=== PATIENT | male | born 1995 | race Caucasian/White ===

== ENCOUNTER 2021-02-14 13:07 | Emergency (ER) | payer SELFPAY ==
[~2021-02-14] VITALS: Ht 177.8 cm; Wt 72.1 kg
[2021-02-14] MEDS ORDERED: LORAZEPAM INJ 2 MG/ML VIAL IM STA (13:09)
[2021-02-14] MEDS ORDERED: diphenhydrAMINE HCL 50 MG/ML VIAL ONE (13:13)
[2021-02-14] MEDS ORDERED: HALOPERIDOL LACTATE INJ 5 MG/ML VIAL ONE (13:14)
[2021-02-14] MEDS ORDERED: LORAZEPAM INJ 2 MG/ML VIAL ONE (13:14)
--- NOTE | 2021-02-14 13:14 | NUR ---
PT PLACED ON BEHAVIORAL RESTRAINTS.
--- NOTE | 2021-02-14 13:18 | NUR ---
[facility] AND [employer] ON [facility]FFS TO ER BED 15. AWAKE, ALERT BUT AGITATED. NOT IN RESP DISTRESS. BROUGHT IN BECAUSE A BYSTANDER CALLED 911 BECAUSE PT IS YELLING ANG SCREAMING INFRONT OF A [employer]S GROCERY. PT INDEED AGITATED, YELLING AND SCREAMING UPON PRESENTATION. DENIES ANY SUICIDAL NOR HOMICIDAL THOUGHT. WAS AT THE BEDSIDE FOR EVAL. ORDERS RECEIVED, NOTED AND CARRIED OUT.
[2021-02-14 13:29] LABS: BASOPHILS # (AUTO) 0.1 K/uL (0.0-0.2); BASOPHILS % (AUTO) 0.5 % (0.0-2.0); EOSINOPHILS % (AUTO) 0.1 % (0.0-6.0); HEMATOCRIT 40 % (39-51); LYMPHOCYTES # (AUTO) 2.8 K/uL (0.8-4.8); LYMPHOCYTES % (AUTO) 20.3 % (20.0-44.0); MEAN CORPUSCULAR HGB CONC 33 g/dl (31.0-36.0); MEAN CORPUSCULAR VOLUME 92 fL (80-96); MONOCYTES # (AUTO) 1.4 K/uL (0.1-1.30); MONOCYTES % (AUTO) 10.5 % (2.0-12.0); NEUTROPHILS # (AUTO) 9.3 K/uL (1.8-8.9); NEUTROPHILS % (AUTO) 68.6 % (43.0-81.0); PLATELET COUNT (AUTO) 399 K/uL (150-450); RED BLOOD CELL COUNT(AUTO) 4.35 MIL/uL (4.5-6.0); WHITE BLOOD COUNT (AUTO) 13.6 K/uL (4.3-11.0)
[2021-02-14] MEDS ORDERED: HALOPERIDOL LACTATE INJ 5 MG/ML VIAL IM ONE (13:30)
[2021-02-14] MEDS ORDERED: diphenhydrAMINE HCL 50 MG/ML VIAL IM ONE (13:30)
[2021-02-14 13:37] LABS: CALCIUM, SERUM 9.4 mg/dL (8.5-10.1); CARBON DIOXIDE 21 mmol/L (21-32); CHLORIDE 105 mmol/L (98-107); CREATININE 1.2 mg/dL (0.6-1.3); GLUCOSE 95 mg/dL (74-106); POTASSIUM 3.5 mmol/L (3.5-5.1); SODIUM SERUM 144 mmol/L (136-145); UREA NITROGEN, BLOOD 14 mg/dL (7-18)
[2021-02-14 13:43] LABS: ACETAMINOPHEN 0 ug/ml (10-30); ALANINE AMINOTRANSFERASE 40 U/L (12-78); ALBUMIN 4.1 g/dL (3.4-5.0); ALCOHOL, BLOOD < 3 mg/dL (0-0); ALKALINE PHOSPHATASE 81 U/L (46-116); ASPARTATE AMINOTRANSFERASE 29 U/L (15-37); BILIRUBIN,DIRECT 0.2 mg/dL (0.0-0.2); TOTAL PROTEIN, SERUM 8.2 g/dL (6.4-8.2)
--- NOTE | 2021-02-14 15:35 | NUR ---
SS Note: Pt. not interviewable at this time as he was given ativan and Haldol at 1317. SW notified pt.'s nurse, Marisa to call crisis when pt. is interviewable and if pt.'s mental status has not improved with medication. ED Staff to follow up with homeless discharge.
--- NOTE | 2021-02-14 21:47 | NUR ---
PT IS AWAKE, ALERT AND ORIENTED X4. NOT IN RESP DISTRESS. PT CANT REMEMBER ANYTHING WHAT HAPPENED. PT IS PROVIDED WITH FOOD. DENIES SUICIDAL NOR HOMICIDAL IDEATION. MADE AWARE.
--- NOTE | 2021-02-14 21:48 | NUR ---
ABLE TO GET INFORMATION FROM PT.HE IS JAKOB LAURENT 89
--- NOTE | 2021-02-14 23:16 | NUR ---
PT MARKED FOR DISCHARGE BUT STILL UNSTEADY IN GAIT.
--- NOTE | 2021-02-15 04:43 | NUR ---
PT AWAKE IN BED, PROVIDED WITH WATER. VSS. AWARE HE WILL BE DISCHARGED SOON.
[2021-02-15 05:44] VITALS: BP 115/74
--- NOTE | 2021-02-15 05:44 | NUR ---
Patient discharged to home in stable condition. Written and verbal after care instructions given. Patient verbalizes understanding of instruction.
== END 2021-02-15 05:45 | disposition home or self-care (01) ==
LOC: EDBD 18:46 → ER 18:46
DX: F19.959 Other psychoactive substance use, unspecified with psychoactive substance-induced psychotic disorder, unspecified (principal); R45.1 Restlessness and agitation; R45.6 Violent behavior; F15.10 Other stimulant abuse, uncomplicated; F12.10 Cannabis abuse, uncomplicated
CPT/HCPCS: 36415; 80048; 80076; 80143; 80307; 80320; 85025; 96372 ×2; 99285; J1200; J1630; J2060; G0480